=== PATIENT | female | born 1935 | race Caucasian/White ===

== ENCOUNTER 2016-09-25 15:13 | Inpatient (IN) | payer MEDICARE, OTHER ==
[~2016-09-25] VITALS: Ht 165.1 cm; Wt 53.6 kg
[~2016-09-25 15:13] MED LIST: ALBUTEROL0.09 MG/A2 INH; LANOXIN0.25 MG; LANOXIN0.25 MG PO; METOPROLOL25 MG PO; PRAD75 PO; PROPYLTHIOURACI50 MG PO; PROPYLTHIOURACIL; TESSALON PERLE200 MG PO; TRIAMTERENE; TRIAMTERENE/HCT1 CAP PO; ZANTAC 7575 MG; ZITHROMAX Z PA250 MG PO
[2016-09-25 15:18] VITALS: BP 89/60
[2016-09-25 15:48] LABS: BASO # 0.1 10*3/uL (0.0-0.1); BASO % 0.6 % (0.0-1.0); EOS # 0.2 10*3/uL (0.0-0.4); EOS % 1.5 % (1.0-4.0); HEMATOCRIT 42.9 % (37.0-47.0); HEMOGLOBIN 14.2 g/dl (12.0-16.0); LYMPH # 2.5 10*3/uL (1.3-4.4); LYMPH % 24.2 % (27.0-41.0); MEAN CELL VOLUME 95.1 fl (81.0-99.0); MEAN CORPUSCULAR HGB 31.5 pg (27.0-31.0); MEAN CORPUSCULAR HGB CONC 33.1 g/dl (33.0-37.0); MONO # 0.8 10*3/uL (0.1-1.0); NEUT # 6.8 10*3/uL (2.3-7.9); NEUT % 65.4 % (47.0-73.0); PLATELET COUNT AUTOMATED 191 10*3/uL (130-400); RED BLOOD COUNT 4.51 10*6/uL (4.10-5.10); RED CELL DISTRI WIDTH 12.1 % (0-14.5); WHITE BLOOD COUNT 10.3 10*3/uL (4.8-10.8)
[2016-09-25 15:57] LABS: INTERNATIONAL NORM RATIO 1.1 (2.0-3.5); PROTHROMBIN TIME 11.4 SECONDS (9.0-12.4)
[2016-09-25 15:58] VITALS: BP 94/55
[2016-09-25 16:05] VITALS: BP 110/67
[2016-09-25 16:05] LABS: ALBUMIN 3.7 gm/dl (3.1-4.5); ALKALINE PHOSPHATASE 107 U/L (45-117); BILIRUBIN, TOTAL 1.9 mg/dl (0.2-1.0); BUN 12 mg/dl (7-24); C-REACTIVE PROTEIN 0.54 MG/DL (0-0.3); CARBON DIOXIDE 35 mmol/L (21-32); CHLORIDE 99 mmol/L (98-107); CKMB 1.2 ng/ml (0.5-3.6); CPK 65 U/L (26-192); EST GLOM FILT AFRICAN AMERICAN > 60 ml/min; GLUCOSE 110 mg/dL (65-99); MAGNESIUM 2.3 mg/dL (1.5-2.1); POTASSIUM 3.5 mmol/L (3.5-5.1); SGOT/AST 17 IU/L (3-35); SGPT/ALT 16 U/L (12-78); SODIUM 137 mmol/L (136-145)
[2016-09-25 16:17] LABS: TROPONIN I < 0.015 ng/ml (<0.045)
[2016-09-25 18:18] VITALS: BP 110/67
[2016-09-25 18:41] LABS: CKMB 0.7 ng/ml (0.5-3.6); CPK 62 U/L (26-192)
[2016-09-25 18:46] LABS: TROPONIN I < 0.015 ng/ml (<0.045)
[2016-09-25 20:00] VITALS: BP 100/54
[2016-09-26 00:31] VITALS: BP 112/52
[2016-09-26 00:41] LABS: CKMB 0.8 ng/ml (0.5-3.6); CPK 55 U/L (26-192); TROPONIN I < 0.015 ng/ml (<0.045)
[2016-09-26 06:59] LABS: BASO % 0.5 % (0.0-1.0); EOS % 0.5 % (1.0-4.0); HEMATOCRIT 41.2 % (37.0-47.0); HEMOGLOBIN 13.8 g/dl (12.0-16.0); LYMPH # 1.5 10*3/uL (1.3-4.4); LYMPH % 18.8 % (27.0-41.0); MEAN CELL VOLUME 93.6 fl (81.0-99.0); MEAN CORPUSCULAR HGB 31.4 pg (27.0-31.0); MEAN CORPUSCULAR HGB CONC 33.5 g/dl (33.0-37.0); MEAN PLATELET VOLUME 9.9 fl (9.6-12.3); MONO # 0.6 10*3/uL (0.1-1.0); MONO % 7.6 % (3.0-9.0); NEUT # 5.9 10*3/uL (2.3-7.9); NEUT % 72.2 % (47.0-73.0); PLATELET COUNT AUTOMATED 154 10*3/uL (130-400); RED CELL DISTRI WIDTH 12.1 % (0-14.5); WHITE BLOOD COUNT 8.1 10*3/uL (4.8-10.8)
[2016-09-26 07:28] LABS: CKMB 1.1 ng/ml (0.5-3.6); CPK 50 U/L (26-192)
[2016-09-26 07:29] LABS: TROPONIN I < 0.015 ng/ml (<0.045)
[2016-09-26 07:31] LABS: INTERNATIONAL NORM RATIO 1.1 (2.0-3.5); PROTHROMBIN TIME 11.6 SECONDS (9.0-12.4)
[2016-09-26 07:34] LABS: CHLORIDE 98 mmol/L (98-107); POTASSIUM 3.1 mmol/L (3.5-5.1); SODIUM 139 mmol/L (136-145)
[2016-09-26 07:36] LABS: HEMOGLOBIN A1c 6.1 % (4.8-5.6)
[2016-09-26 07:57] LABS: ALBUMIN 3.7 gm/dl (3.1-4.5); ALKALINE PHOSPHATASE 97 U/L (45-117); BILIRUBIN, TOTAL 2.2 mg/dl (0.2-1.0); BUN 7 mg/dl (7-24); CARBON DIOXIDE 34 mmol/L (21-32); CHOLESTEROL 110 mg/dL (<200); EST GLOM FILT AFRICAN AMERICAN > 60 ml/min; FREE T4 0.84 ng/dl (0.76-1.46); GLUCOSE 115 mg/dL (65-99); HDL CHOLESTEROL 50 mg/dl (40-60); LDL CHOLESTEROL 38 mg/dL (9-159); MAGNESIUM 2.2 mg/dL (1.5-2.1); PHOSPHOROUS 3.1 mg/dL (2.5-4.9); SGOT/AST 15 IU/L (3-35); SGPT/ALT 14 U/L (12-78); TOTAL PROTEIN 7.8 gm/dL (6.4-8.2); TRIGLYCERIDES 111 mg/dl (<150); VLDL CHOLESTEROL 22 mg/dL (6-40)
[2016-09-26 08:00] VITALS: BP 110/48
[2016-09-26 08:06] LABS: VITAMIN D, 25-HYDROXY 17.3 ng/mL (30-100)
[2016-09-26 08:29] LABS: FOLIC ACID > 24.00 ng/mL (>5.38)
[2016-09-26 12:00] VITALS: BP 99/60
[2016-09-26 16:00] VITALS: BP 108/61
[2016-09-26 20:00] VITALS: BP 118/63
[2016-09-26 23:57] VITALS: BP 98/60
[2016-09-27 06:38] LABS: INTERNATIONAL NORM RATIO 1.1 (2.0-3.5); PROTHROMBIN TIME 11.6 SECONDS (9.0-12.4)
[2016-09-27 06:40] LABS: BUN 7 mg/dl (7-24); CARBON DIOXIDE 32 mmol/L (21-32); CHLORIDE 100 mmol/L (98-107); EST GLOM FILT AFRICAN AMERICAN > 60 ml/min; GLUCOSE 120 mg/dL (65-99); POTASSIUM 3.5 mmol/L (3.5-5.1); SODIUM 139 mmol/L (136-145)
[2016-09-27 08:00] VITALS: BP 118/63
[2016-09-27 12:00] VITALS: BP 102/64
[2016-09-27 16:00] VITALS: BP 110/72
[2016-09-27 20:01] VITALS: BP 102/63
[2016-09-28] VITALS: BP 110/82
[2016-09-28 06:24] LABS: INTERNATIONAL NORM RATIO 1.5 (2.0-3.5); PROTHROMBIN TIME 15.8 SECONDS (9.0-12.4)
[2016-09-28 08:00] VITALS: BP 115/43
[2016-09-28 12:00] VITALS: BP 107/68
[2016-09-28 16:00] VITALS: BP 116/73
[2016-09-28 20:00] VITALS: BP 107/63
[2016-09-29] VITALS: BP 134/78; BP 93/54
[2016-09-29 06:30] LABS: BASO # 0.1 10*3/uL (0.0-0.1); BASO % 0.8 % (0.0-1.0); EOS # 0.2 10*3/uL (0.0-0.4); EOS % 2.8 % (1.0-4.0); HEMATOCRIT 43.6 % (37.0-47.0); HEMOGLOBIN 14.7 g/dl (12.0-16.0); LYMPH # 1.8 10*3/uL (1.3-4.4); LYMPH % 28.1 % (27.0-41.0); MEAN CELL VOLUME 94.2 fl (81.0-99.0); MEAN CORPUSCULAR HGB 31.7 pg (27.0-31.0); MEAN CORPUSCULAR HGB CONC 33.7 g/dl (33.0-37.0); MEAN PLATELET VOLUME 10.3 fl (9.6-12.3); MONO # 0.5 10*3/uL (0.1-1.0); MONO % 7.5 % (3.0-9.0); NEUT % 60.3 % (47.0-73.0); PLATELET COUNT AUTOMATED 204 10*3/uL (130-400); RED BLOOD COUNT 4.63 10*6/uL (4.10-5.10); RED CELL DISTRI WIDTH 12.3 % (0-14.5); WHITE BLOOD COUNT 6.5 10*3/uL (4.8-10.8)
[2016-09-29 07:03] LABS: INTERNATIONAL NORM RATIO 2.2 (2.0-3.5); PROTHROMBIN TIME 24.8 SECONDS (9.0-12.4)
[2016-09-29 08:00] VITALS: BP 122/72
[2016-09-29] MEDS ORDERED: COUMADIN5 M2 PO (10:01)
[2016-09-29] MEDS ORDERED: LEVAQUIN750 M1 PO (10:03)
== END 2016-09-29 11:12 | disposition home or self-care (01) | DRG 178 ==
LOC: ED 15:13 → EDHOLD 16:56 → 4E 16:56
PROVIDERS: Emergency Medicine; Internal Medicine
DX: J15.6 Pneumonia due to other Gram-negative bacteria (principal); D68.69 Other thrombophilia; I48.2 Chronic atrial fibrillation; E83.41 Hypermagnesemia; J45.909 Unspecified asthma, uncomplicated; F17.200 Nicotine dependence, unspecified, uncomplicated; I10 Essential (primary) hypertension; E87.6 Hypokalemia; E55.9 Vitamin D deficiency, unspecified; Z79.01 Long term (current) use of anticoagulants; Z82.49 Family history of ischemic heart disease and other diseases of the circulatory system; Z71.6 Tobacco abuse counseling; Z80.9 Family history of malignant neoplasm, unspecified; Z79.51 Long term (current) use of inhaled steroids; Z79.899 Other long term (current) drug therapy

== ENCOUNTER → 2016-10-02 | Outpatient (CLI) | payer MEDICARE, OTHER ==
[~2016-10-02] MED LIST changes: +COUMADIN5 M2 PO; +LEVAQUIN750 M1 PO
[2016-10-02 15:00] LABS: INTERNATIONAL NORM RATIO 3.3 (2.0-3.5); PROTHROMBIN TIME 37.9 SECONDS (9.0-12.4)
== END | disposition home or self-care (01) ==
LOC: LAB 13:34
PROVIDERS: Internal Medicine
DX: I48.91 Unspecified atrial fibrillation (principal)

== ENCOUNTER → 2016-10-16 | Outpatient (CLI) | payer OTHER | END | disposition home or self-care (01) | LOC: MRI 10-12 11:00 | DX: M17.12 Unilateral primary osteoarthritis, left knee (principal); R22.42 Localized swelling, mass and lump, left lower limb; I83.93 Asymptomatic varicose veins of bilateral lower extremities ==

== ENCOUNTER → 2016-12-25 | Outpatient (CLI) | payer OTHER ==
[2016-12-25 09:37] LABS: EST GLOM FILT AFRICAN AMERICAN > 60 ml/min
== END | disposition home or self-care (01) ==
LOC: LAB 04:40 → CT 10:00 → LAB 10:00
DX: C49.22 Malignant neoplasm of connective and soft tissue of left lower limb, including hip (principal); J18.9 Pneumonia, unspecified organism; E04.1 Nontoxic single thyroid nodule

== ENCOUNTER 2017-05-11 13:55 | Inpatient (IN) | payer OTHER ==
[2017-05-11] VITALS (7 sets, daily range): BP systolic 92–117; BP diastolic 40–67
[~2017-05-11] VITALS: Ht 167.6 cm; Wt 48.3 kg
--- NOTE | ~2017-05-11 | CON ---
[place], [place] REPORT OF CONSULTATION NAME: CHAVEZ MARQUEZ I UNIT #: [id number] ROOM: 510 DOCTOR: ÁNGEL YOUSSEF MDDEEJAY BIRTHDATE: [birth year] DOS: 05/12/2017 PULMONARY CONSULTATION, EVALUATION AND MANAGEMENT REASON FOR CONSULTATION: Assess the patient for possibility of acute pneumonia and other abnormalities noted on the CT scan of the chest. HISTORY OF PRESENT ILLNESS: A 81-year-old white female patient who has been admitted to the hospital under the care of the hospitalist service on 05/11/2017. She has been brought to the hospital, as the patient was noted with syncopal episode at home. She did fell down from a seated position, but has not been noted any sustained injury to the head or other parts of the body or musculoskeletal symptoms. The syncopal episode has not recurred since hospitalization. The patient has been considered possibility of dehydration and has been given intravenous fluids. The patient is noted fully awake and alert at this time. She does report symptoms of some cough, which has been noted recently without any associated symptoms of wheezing or shortness of breath. The patient stated that she does have some pain, nonspecific, because of the cough, but does not have any ache or severe chest pain. Denies symptoms of hemoptysis. REVIEW OF SYSTEMS: CONSTITUTIONAL: Fatigue and tiredness reported for this patient just recently. There were no symptoms of fever or chills or any cold-like symptoms previously prior to the current hospitalization. EYES: Denies any burning, redness or tenderness. EARS, NOSE, THROAT: No sore throat was noted, otalgia, postnasal drainage, epistaxis, ear discharge or pain. CARDIOVASCULAR: The patient was noted syncope, etiology not clearly determined at this time. Denies any edema or pain of the lower extremities or palpitations. GASTROINTESTINAL: No dysphagia, nausea, vomiting, diarrhea, abdominal pain, hematemesis, melena, hematochezia or abnormal weight loss history. GENITOURINARY: Denies dysuria, suprapubic pain or hematuria. MUSCULOSKELETAL: No acute joint pain, redness or tenderness. SKIN: Denies any lesions or rashes. CENTRAL NERVOUS SYSTEM: No dizziness, headache, diplopia or tingling sensation of the extremities. Remaining systems were reviewed with the patient, they were noted all negative. PAST MEDICAL HISTORY: Reported as: 1. History of chronic atrial fibrillation. 2. Essential hypertension. 3. Vitamin D deficiency. PAST SURGICAL HISTORY: Reported as: 1. History of 3 sections. 2. Bilateral breast biopsies in the past. 3. History of cholecystectomy. [place], [place] REPORT OF CONSULTATION NAME: CHAVEZ MARQUEZ I UNIT #: [id number] ROOM: [facility] DOCTOR: DEEJAY PETERSON MD BIRTHDATE: [birth year] SOCIAL HISTORY: The patient is , lives at home. She does have 3 children. Noted nonsmoker lifetime. Denies history of alcohol use or any illicit drug use. Denies occupation related pulmonary exposure. FAMILY HISTORY: The patient's both parents and history was not known by the patient. MEDICATIONS: The medications for the patient, which were recorded at the time of admission in the medication reconciliation, were noted as use of digoxin, metoprolol tartrate, potassium chloride, propylthiouracil, Bactrim suspension twice a day, Dyazide, Coumadin 2.5 alternating with 5 mg every other day. DRUG ALLERGIES: REPORTED ALLERGY TO THE PENICILLINS. PHYSICAL EXAMINATION: GENERAL: A 81-year-old white female who has been currently noted to be awake and alert without any acute distress at this time. Comfortably resting, eager to be discharged home soon. VITAL SIGNS: The patient's height was recorded 5 feet 6 inches, weight of 106 pounds, BMI 17.7. The patient's temperature noted on 05/11/2017 was 100.1 degrees Fahrenheit, otherwise normal temperature since admission in the last 24 hours, respiratory rate ranging between 18-20, heart rate of 82-66, blood pressure 105/60 to 156. Pulse oxygen saturation on room air was 92% saturation to 94% saturation recorded. HEENT: Head was atraumatic. Eyes nonicterus. Neck was supple. Oral mucosa moist. CARDIOVASCULAR: S1, S2 audible. LUNGS: There were no wheezes or crackles heard. The lungs were noted clear to auscultation bilaterally. ABDOMEN: Noted flat, soft, nontender. Bowel sounds present. CENTRAL NERVOUS SYSTEM: The patient's cranial nerves were noted to be intact. No focal deficit. SKIN: Visible skin with no lesions or rashes. MUSCULOSKELETAL: Noted without any acute deformities. LABORATORY DATA: Lactic acid 1.8 noted yesterday on admission. PT/PTT yesterday on admission, INR of 1.8, PTT 32. CBC of the patient yesterday, WBC count 2.7, hemoglobin and hematocrit normal, platelet count 104,000. CMP of the patient on 05/11/2017, normal BUN and creatinine, sodium 128, chloride of 87, CO2 33, bilirubin 1.2. Troponin normal. CBC of the patient this morning, WBC count 2.3, hemoglobin and hematocrit normal, platelet count was 81,000, decreased from yesterday. BMP of the patient this morning noted as normal BUN and creatinine, sodium mildly decreased at 133 and potassium noted at 2.9. The TSH was noted 5.40. Culture of the sputum is pending. Gram stain of today cultured many white blood cells, moderate epithelial cells, moderate gram-positive bacilli, few gram-negative bacilli, few gram-positive cocci in pairs and chains and few budding yeast. Chest x-ray one-view, the patient does not show any acute abnormalities. CT of the chest that was done for the patient early this morning was reviewed. There was no evidence of pulmonary embolism. [place], [place] REPORT OF CONSULTATION NAME: CHAVEZ MARQUEZ I UNIT #: [id number] ROOM: [facility] DOCTOR: ÁNGEL YOUSSEF MD,[facility] BIRTHDATE: [birth year] Mild right hilar lymphadenopathy noted for this patient without any mediastinal lymphadenopathy with short dimension size for this patient of the lymph node noted at 13 mm. Short axis dimension of the patient noted 30 mm. A small patch of ground glass opacity was noted faintly visible in the right upper lung. Apical pleural thickening was noted as not an unusual finding. There were no pleural effusions. IMPRESSION: 1. The patient has been currently admitted to the hospital with syncopal episode, etiology unable to be determined at this time with some symptoms of cough and low-grade fever. Possibility of acute pneumonia involving the right upper lung, whether viral or bacterial, cannot be completely excluded. However, the etiology of the syncope could be considered with other etiologies such as intravascular volume depletion, cardiac dysrhythmia, cardiac in origin. However, seizure cannot be completely excluded as a cause of the syncopal episodes. She was still noted with electrolyte imbalance as well. 2. Evidence of leukopenia, which remains persistent as well as thrombocytopenia was noted from admission at this time, may be suggestive of either underlying bone marrow disorder or current viral infection resulting in current abnormalities as well. The CBC that was done for this patient in September 2016 was noted with normal WBC count at that time, on 09/25/2016, with WBC count recorded as 10.3. The platelet count was also noted normal at 191,000 with normal hemoglobin and hematocrit. PLAN OF MANAGEMENT: Empirical treatment for the acute pneumonia for the patient. Ordered viral panel for this patient with nasopharyngeal wash as well as follow the results of sputum culture. Current abnormality at this time would be monitored with followup CT scan in approximately a month or so to document the resolution of current abnormality. If it persisted, certain additional assessment might need to be done for the patient for the etiology of current ground glass opacity, possibility of slow growing malignant carcinoma in situ, adenocarcinoma in situ in the differential diagnosis. However, the localized area of interstitial involvement with noninfectious etiologies could be considered as well. The patient will be ordered for interstitial disease work panel as well. The respiratory viral panel was ordered as well. Continue adequate hydration and correction of the electrolytes of the patient as well. Supportive therapy, plan of management and other care. Usual treatment. Addition of treatment and changes are to be made for this patient based on the progression of the illness. [place], [place] REPORT OF CONSULTATION NAME: CHAVEZ MARQUEZ I UNIT #: [id number] ROOM: [facility] DOCTOR: DEEJAY PETERSON MD BIRTHDATE: [birth year] DEEJAY NEAL MD CM:CONSTR:REPORT OF CONSULTATION 1625 05/13/17 0227 interface
--- NOTE | ~2017-05-11 | PR ---
[place], [place] PROGRESS NOTE NAME: CHAVEZ MARQUEZ I UNIT #: [id number] ROOM: 510 DOCTOR: ÁNGEL YOUSSEF MD,DEEJAY BIRTHDATE: [birth year] DOS: 05/13/2017 SUBJECTIVE: She has been noted comfortable at this time, still noted with some cough, but there was no sputum expectoration. Denies chest pain. Eager to be discharged home. Denies symptoms of hemoptysis. OBJECTIVE: VITAL SIGNS: Blood pressure was recorded 110/73, respiratory rate 20, heart rate 78, temperature normal. Pulse oxygen saturation on room air 96% saturation recorded. HEENT: No acute change. NECK: Supple. CARDIOVASCULAR: S1, S2 is audible. LUNGS: The patient was noted without any wheezing or crackles. ABDOMEN: Soft, nontender. LABORATORY DATA: Culture of the sputum were noted, positive for beta hemolytic strep. The ESR was noted as 10. CBC this morning, WBC count 2.1, hemoglobin and hematocrit normal, platelet count still noted decreased at 85,000. BMP: Normal BUN and creatinine. Potassium still decreased at 2.9, sodium was also noted low at 135. IMPRESSION: 1. Right upper lung ground glass opacity was noted with right hilar lymphadenopathy, possibility of acute pneumonia localized infection has been considered. The other differential remains in progress. Workup in progress. 2. Persistent leukopenia as well as thrombocytopenia. The etiology remains unclear. PLAN OF TREATMENT: Continuation of the current therapy at this time as in progress. Other usual care, plan of therapy and care. Additional treatment changes to be made based on progression of the illness. DEEJAY NEAL MD CM:PNTRANS [id number] DEEJAY YOUSSEF MD 05/13/17 1534 interface
--- NOTE | ~2017-05-11 | PR ---
[place], [place] PROGRESS NOTE NAME: CHAVEZ MARQUEZ I UNIT #: [id number] ROOM: 510 DOCTOR: DEEJAY PETERSON MD BIRTHDATE: [birth year] DOS: 05/14/2017 SUBJECTIVE: She has been noted comfortable at this time without any discharge from the pulmonary standpoint. Minimal cough was reported with symptoms of chest pain or hemoptysis. Denies any abdominal pain. OBJECTIVE: VITAL SIGNS: For the patient which has been recorded this morning was noted with a normal temperature, respiratory rate 20, heart rate 73, and blood pressure of 99/43. The pulse oxygen saturation of the patient was noted as 93% saturation. HEENT: Examination shows no acute change. NECK: Supple. CARDIOVASCULAR: S1, S2 is audible. LUNGS: The patient was noted without any wheezing or crackles at the present time. ABDOMEN: Soft, nontender. LABORATORY DATA: CMP this morning was noted normal BUN and creatinine. Potassium still noted decreased at 3.0. However, the sodium was corrected. CBC of the patient was still noted WBC count 4.5, platelet count 86,000, hemoglobin 11%. Differential was noted with significant elevation, lymphocytes of 56%. The PT/INR were noted 2.2, which is therapeutic. Echocardiogram noted normal left ventricle ejection fraction. IMPRESSION: 1. The patient who has been currently noted with a small ground glass opacity right upper lung. 2. Mild right hilar lymphadenopathy, which was noted 3. Pancytopenia. 4. Leukocytosis, rule out bone marrow problems including possibility of myelodysplastic syndrome. 5. Leukemia . 6. Mild depression, other etiology be considered possibly viral in nature or any connective tissue disorder as well. PLAN OF MANAGEMENT: Monitor current workup, which was sent for assessment of ground glass opacity, empirical treatment for the pneumonia. Outpatient assessment, the patient repeat CT scan of the chest to document the evaluation of current problem. The patient was recommended about assessment by the Nephrology Services because of severe persistent hypokalemia and other electrolyte imbalance. [place], [place] PROGRESS NOTE NAME: CHAVEZ MARQUEZ I UNIT #: [id number] ROOM: 510 DOCTOR: DEEJAY PETERSON MD BIRTHDATE: [birth year] DEEJAY NEAL MD CM:PNTRANS [id number] DEEJAY YOUSSEF MD 05/14/17 1845 interface
--- NOTE | ~2017-05-11 | CON ---
[place], [place] REPORT OF CONSULTATION NAME: CHAVEZ MARQUEZ I UNIT #: [id number] ROOM: 510 DOCTOR: TAMAR MORENO MD BIRTHDATE: [birth year] DOS: 05/11/2017 REASON FOR CONSULTATION: Syncope, permanent atrial fibrillation. HISTORY OF PRESENT ILLNESS: The patient is a 81-year-old woman who presented to the hospital after a syncopal episode at home. The records indicate that she has a history of atrial fibrillation and she tells me that she has had atrial fibrillation for at least 10 years. She has never seen a web development instructor, but was managed by Dr. Hamida Manley who had her on anticoagulants as well as digoxin and metoprolol for rate control. She was on Pradaxa for a time, but was placed back on warfarin when Pradaxa became too expensive. She was also followed for hypertension and was managed with triamterene with hydrochlorothiazide. The patient states that she does not drink much water and does not eat as well as she should. She states that her blood pressure is almost always low. She claimed that because of the holidays, she was overworked and was very tired. Yesterday afternoon, she had gone to her kitchen to get a cup of tea. As she was walking across the kitchen, she began to feel lightheaded and saw bright lights in front of her eyes. She looked down and realized that she had spilled her tea and then fell to the floor. She hit her head on the floor, but woke immediately after that. She denied any focal weakness. She denied any diaphoresis, nausea or chest pain. She does not feel palpitations before during the event. Upon arrival, she was noted to be hypotensive with a blood pressure of 92/55 and then at 93/40. She was given 2 liters of IV fluid with improvement in her blood pressure. Initial laboratory studies did show sodium of 128. Subsequently, her potassium was low at 2.9. Her diuretics were stopped. She was bradycardic and so her metoprolol was also stopped. We were asked to assist in her care. PAST MEDICAL HISTORY: Includes 1. Permanent atrial fibrillation present at least 10 years. 2. Chronic anticoagulation with warfarin for stroke prophylaxis. 3. Essential hypertension managed with thiazide diuretics and beta blockers. 4. Rate control with metoprolol and digoxin. 5. 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 6. Hyperthyroidism, on suppressive therapy with propylthiouracil. MEDICATIONS: Prior to admission included digoxin 250 mcg daily, metoprolol 25 mg b.i.d., potassium 10 mEq daily, propylthiouracil 50 mg daily, sulfamethoxazole with trimethoprim 20 mL b.i.d. beginning 05/10/2017, triamterene with hydrochlorothiazide one tablet daily, warfarin 2.5 mg alternating with 5 mg, to maintain an INR between 2 and 3. ALLERGIES: The patient lists an allergy to PENICILLINS. FAMILY HISTORY: Negative for early coronary artery disease. Several family members have had atrial fibrillation; however, including her sister and possibly her mother. [place], [place] REPORT OF CONSULTATION NAME: CHAVEZ MARQUEZ I UNIT #: [id number] ROOM: [facility] DOCTOR: TAMAR MORENO MD BIRTHDATE: [birth year] REVIEW OF SYSTEMS: The patient denies diplopia or loss of vision. She denies focal weakness. She had the episode of syncope noted above. She denies nausea or vomiting. She denies fevers, chills or sweats. She has a poor appetite, but denies any recent major weight change. She does admit that she does not drink a lot of fluids. She denies nausea or vomiting. She denies hemoptysis or hematemesis. She denies any focal weakness. She denies palpitations or chest pain. She denies any change in bowel or bladder habits and denies blood in her stools or urine. She denies abdominal bloating or swelling. She denies any peripheral edema. She denies orthopnea or PND. She denies any skin rashes. The remainder of the review of systems is negative except as noted above. SOCIAL HISTORY: The patient is and lives with her . She does smoke. She does not consume alcohol. She does not drink much water, although she does drink tea daily. PHYSICAL EXAMINATION: GENERAL: The patient is a slender, elderly white female who is awake, alert and oriented. VITAL SIGNS: Pulse is 75 and irregularly irregular. Blood pressure is 97/58. Orthostatics have not yet been done. She is afebrile. She weighs 48.3 kg and has a body mass index of 17.2. HEENT: Normocephalic, atraumatic. Extraocular muscles are intact. Sclerae are clear. Pupils are equal, round and react to light. The oral mucosa is moist. Tongue is midline. NECK: Supple. She has no jugular distention. Carotids are full. I heard no bruits. She had no neck or supraclavicular masses, no thyromegaly. LUNGS: Respirations are unlabored. Her chest has decreased breath sounds at the bases. There are no wheezes or rales. She has no presacral edema or chest wall tenderness. CARDIOVASCULAR: Her heart has an irregularly irregular rhythm. There are no murmurs or gallops. The PMI is not displaced. There is no precordial heave, lift or thrill. ABDOMEN: Soft and normally active without masses, organomegaly or bruits. EXTREMITIES: Showed no edema. Peripheral pulses were palpable in the feet. LABORATORY DATA: I reviewed her electrocardiogram. It showed atrial fibrillation with a controlled ventricular response. She had nonspecific ST and T-wave changes which could be related to digoxin. She does have a left axis deviation with a left anterior fascicular block. Hemoglobin is 12.2 with hematocrit 36.4. There were 2300 white cells and 81,000 platelets. INR on admission was 1.8. Sodium on admission was 128 with a potassium 3.5, BUN 13, creatinine 0.95, chloride 87, bicarbonate 33. ProBNP is 2321. TSH is mildly elevated at 5.42. IMPRESSION: 1. Syncopal episode, likely due to hypotension and dehydration. 2. History of essential hypertension. 3. Hypotension with probable excessive diuresis. [place], [place] REPORT OF CONSULTATION NAME: CHAVEZ MARQUEZ I UNIT #: [id number] ROOM: 510 DOCTOR: TAMAR MORENO MD BIRTHDATE: [birth year] 4. Hypochloremic metabolic alkalosis, most likely due to diuretic therapy. 5. Hypokalemia, replaced. 6. Permanent atrial fibrillation with well controlled rate. The patient may actually be bradycardic. 7. Status post recent resection of a myxofibrosarcoma from her hip. 8. Abnormal chest x-ray indicating possible pneumonia. PLAN: I hardly agree with the thought that she should not be on diuretics. I told her that I did not think that she should be taking triamterene with hydrochlorothiazide any longer. The patient is angry that her metoprolol was stopped and says that she feels flutters in her chest since we have not been giving her metoprolol. Her monitor was discontinued and therefore I am not sure what her rates are. On exam, she is in atrial fibrillation and has been since admission. We will place her back on a monitor to see if she is having episodes of tachycardia. If her heart rate is well controlled at rest and with exertion, then I would not resume her metoprolol at this time. We will obtain an echocardiogram to assess left ventricular function and look for any evidence of valve problems. At this point; however, I believe that her syncope was caused by her permanent atrial fibrillation and dehydration exacerbated by her diuretic therapy. I thank the hospitalist physicians for asking our advice regarding the patient's care. TAMAR MORENO MD CM:CONSTR:REPORT OF CONSULTATION 1511 05/12/17 1702 interface
--- NOTE | ~2017-05-11 | PR ---
[place], [place] PROGRESS NOTE NAME: BRENNA MARQUEZ I UNIT #: [id number] ROOM: 510 DOCTOR: TAMAR MORENO MD BIRTHDATE: [birth year] DOS: 05/14/2017 Addendum to Cardiology progress note dictated earlier today by Dr. Raven Coughlin. Brenna Marquez was seen at her bedside today, 05/14/2017, with family medicine physician assistant, Dr. Raven Coughlin. The patient initially presented, May 11, with a syncopal episode at home that was probably related to dehydration and hypotension. She was found to have atrial fibrillation, which was a chronic finding. Her metoprolol was decreased and hydrochlorothiazide was stopped. I reviewed her echocardiogram today, which showed normal left ventricular size with mild concentric left ventricular hypertrophy, normal wall motion and normal systolic function. The left atrium was mildly dilated. There was no significant abnormality of valve function. The patient seemed to feel better with the change in her medications and it was felt that she could be discharged to home. I reviewed my findings and recommendations with the patient as well as with Dr. Coughlin and I agree with the documentation noted by Dr. Coughlin. I thank the hospitalist physicians for asking our advice regarding the patient's care. TAMAR MORENO MD CM:PNTRANS [id number] TAMAR MORENO MD 05/15/17 1644 interface
[2017-05-11] MEDS ORDERED: SULFATRIM 800-120 ML PO (14:31)
[2017-05-11 14:50] LABS: BASO % 0.7 % (0.0-1.0); HEMATOCRIT 41.8 % (37.0-47.0); HEMOGLOBIN 14.3 g/dl (12.0-16.0); LYMPH # 0.8 10*3/uL (1.3-4.4); LYMPH % 28.7 % (27.0-41.0); MEAN CELL VOLUME 89.1 fl (81.0-99.0); MEAN CORPUSCULAR HGB 30.5 pg (27.0-31.0); MEAN CORPUSCULAR HGB CONC 34.2 g/dl (33.0-37.0); MEAN PLATELET VOLUME 10.4 fl (9.6-12.3); MONO # 0.5 10*3/uL (0.1-1.0); MONO % 19.4 % (3.0-9.0); NEUT # 1.4 10*3/uL (2.3-7.9); NEUT % 51.2 % (47.0-73.0); PLATELET COUNT AUTOMATED 104 10*3/uL (130-400); RED BLOOD COUNT 4.69 10*6/uL (4.10-5.10); RED CELL DISTRI WIDTH 12.5 % (0-14.5); WHITE BLOOD COUNT 2.7 10*3/uL (4.8-10.8)
[2017-05-11 15:05] LABS: ACT PARTIAL THROMBO TIME 32.7 SECONDS (20.8-31.5); INTERNATIONAL NORM RATIO 1.8 (2.0-3.5)
[2017-05-11 15:11] LABS: ALBUMIN 3.5 gm/dl (3.1-4.5); ALKALINE PHOSPHATASE 75 U/L (45-117); BUN 13 mg/dl (7-24); CHLORIDE 87 mmol/L (98-107); CREATININE 0.95 mg/dL (0.55-1.02); LIPASE 411 U/L (73-393); POTASSIUM 3.5 mmol/L (3.5-5.1); SGOT/AST 31 IU/L (3-35); SGPT/ALT 18 U/L (12-78); SODIUM 128 mmol/L (136-145); TOTAL PROTEIN 8.4 gm/dL (6.4-8.2); TROPONIN I 0.031 ng/ml (<0.045)
[2017-05-11 15:22] LABS: DIGOXIN 1.69 ng/ml (0.8-2.0)
[2017-05-11 16:47] LABS: BILIRUBIN NEGATIVE (NEGATIVE); BLOOD TRACE-INTACT (NEGATIVE); CLARITY SL CLOUDY (CLEAR); COLOR YELLOW (YELLOW); GLUCOSE NEGATIVE (NEGATIVE); KETONE NEGATIVE (NEGATIVE); LEUKO ESTERASE NEGATIVE (NEGATIVE); NITRITE NEGATIVE (NEGATIVE); PH 7.5 (5.0-9.0); SPECIFIC GRAVITY 1.015 (1.005-1.030)
[2017-05-11 16:54] LABS: BACTERIA TRACE
[2017-05-11 16:55] LABS: RBC 16-20 rbc/hpf (0-2)
[2017-05-11] MEDS ORDERED: POTASSIUM CHLO10 MEQ PO (18:24)
[2017-05-11] MEDS ORDERED: WARFARIN SOD5 MG PO (19:07)
[2017-05-11] MEDS ORDERED: COUMADIN2.5 M1 PO (19:14)
[2017-05-12] VITALS: BP 91/43; BP 99/55
[2017-05-12 06:20] LABS: HEMATOCRIT 36.4 % (37.0-47.0); MEAN CELL VOLUME 90.5 fl (81.0-99.0); MEAN CORPUSCULAR HGB 30.3 pg (27.0-31.0); MEAN CORPUSCULAR HGB CONC 33.5 g/dl (33.0-37.0); MEAN PLATELET VOLUME 10.9 fl (9.6-12.3); PLATELET COUNT AUTOMATED 81 10*3/uL (130-400); RED BLOOD COUNT 4.02 10*6/uL (4.10-5.10); RED CELL DISTRI WIDTH 12.5 % (0-14.5); WHITE BLOOD COUNT 2.3 10*3/uL (4.8-10.8)
[2017-05-12 06:24] LABS: HEMOGLOBIN 12.2 g/dl (12.0-16.0)
[2017-05-12 06:40] LABS: BUN 10 mg/dl (7-24); CHLORIDE 95 mmol/L (98-107); POTASSIUM 2.9 mmol/L (3.5-5.1); SODIUM 133 mmol/L (136-145)
[2017-05-12 06:45] LABS: ATYPICAL LYMPHS 3 % (0-0); OVALOCYTES FEW; PLATELET SUFFICIENCY LOW (NORMAL); ROULEAUX SLIGHT; TOTAL CELLS COUNTED 100 #CELLS
[2017-05-12 06:52] LABS: CREATININE 0.74 mg/dL (0.55-1.02); FREE T4 1.04 ng/dl (0.76-1.46)
[2017-05-12 07:13] LABS: VITAMIN D, 25-HYDROXY 19.3 ng/mL (30-100)
[2017-05-12 08:00] VITALS: BP 96/50
[2017-05-12 12:00] VITALS: BP 97/58
[2017-05-12 16:00] VITALS: BP 105/56
[2017-05-12 20:00] VITALS: BP 100/50
[2017-05-13] VITALS: BP 99/55
[2017-05-13 06:51] LABS: HEMATOCRIT 35.6 % (37.0-47.0); HEMOGLOBIN 12.2 g/dl (12.0-16.0); MEAN CELL VOLUME 90.1 fl (81.0-99.0); MEAN CORPUSCULAR HGB 30.9 pg (27.0-31.0); MEAN CORPUSCULAR HGB CONC 34.3 g/dl (33.0-37.0); MEAN PLATELET VOLUME 10.7 fl (9.6-12.3); PLATELET COUNT AUTOMATED 85 10*3/uL (130-400); RED BLOOD COUNT 3.95 10*6/uL (4.10-5.10); RED CELL DISTRI WIDTH 12.4 % (0-14.5); WHITE BLOOD COUNT 2.1 10*3/uL (4.8-10.8)
[2017-05-13 06:54] LABS: INTERNATIONAL NORM RATIO 2.7 (2.0-3.5)
[2017-05-13 07:01] LABS: BUN 6 mg/dl (7-24); CHLORIDE 99 mmol/L (98-107); CREATININE 0.57 mg/dL (0.55-1.02); PHOSPHOROUS 2.1 mg/dL (2.5-4.9); POTASSIUM 2.9 mmol/L (3.5-5.1); SODIUM 135 mmol/L (136-145)
[2017-05-13 07:21] LABS: TOTAL CELLS COUNTED 50 #CELLS
[2017-05-13 07:23] LABS: PLATELET SUFFICIENCY LOW (NORMAL)
[2017-05-13 08:00] VITALS: BP 109/57
[2017-05-13 12:00] VITALS: BP 110/73
[2017-05-13 16:00] VITALS: BP 102/59
[2017-05-13 20:00] VITALS: BP 112/71
[2017-05-14] VITALS: BP 96/52
[2017-05-14 07:13] LABS: HEMATOCRIT 34.6 % (37.0-47.0); HEMOGLOBIN 11.7 g/dl (12.0-16.0); MEAN CELL VOLUME 90.6 fl (81.0-99.0); MEAN CORPUSCULAR HGB 30.6 pg (27.0-31.0); MEAN CORPUSCULAR HGB CONC 33.8 g/dl (33.0-37.0); MEAN PLATELET VOLUME 11.2 fl (9.6-12.3); PLATELET COUNT AUTOMATED 86 10*3/uL (130-400); RED BLOOD COUNT 3.82 10*6/uL (4.10-5.10); RED CELL DISTRI WIDTH 12.7 % (0-14.5); WHITE BLOOD COUNT 2.5 10*3/uL (4.8-10.8)
[2017-05-14 07:29] LABS: INTERNATIONAL NORM RATIO 2.2 (2.0-3.5)
[2017-05-14 07:45] LABS: BASOPHILS 2 % (0-1); OVALOCYTES FEW; PLATELET SUFFICIENCY LOW (NORMAL); TOTAL CELLS COUNTED 100 #CELLS
[2017-05-14 07:46] LABS: ALBUMIN 2.9 gm/dl (3.1-4.5); ALKALINE PHOSPHATASE 62 U/L (45-117); BUN 6 mg/dl (7-24); CHLORIDE 102 mmol/L (98-107); CREATININE 0.57 mg/dL (0.55-1.02); PHOSPHOROUS 3.1 mg/dL (2.5-4.9); SGOT/AST 26 IU/L (3-35); SGPT/ALT 18 U/L (12-78); SODIUM 138 mmol/L (136-145); TOTAL PROTEIN 6.4 gm/dL (6.4-8.2)
[2017-05-14 08:00] VITALS: BP 99/43
[2017-05-14 12:00] VITALS: BP 102/46
[2017-05-14] MEDS ORDERED: LEVAQUIN750 M1 PO (13:12)
[2017-05-14] MEDS ORDERED: LOPRESSOR25 MG PO (13:12)
[2017-05-14] MEDS ORDERED: COUMADIN1 M1 PO (13:12)
[2017-05-14] MEDS ORDERED: COUMADIN3 M1 PO (13:12)
[2017-05-15 06:10] LABS: IMMUNOGLOBULIN IgE 002170 40 IU/mL (0-100)
[2017-05-15 08:10] LABS: IMMUNOGLOBULIN M, QNT 52 mg/dL (26-217); RHEUMATOID ARTHRITIS FACTOR <10.0 IU/mL (0.0-13.9)
[2017-05-15 12:07] LABS: ALDOLASE 002030 3.1 U/L (3.3-10.3); ANGIOTENSIN-CONVERTING ENZYME 34 U/L (14-82)
[2017-05-15 16:08] LABS: ATYPICAL PANCA <1:20 titer (Neg:<1:20); CYTOPLASMIC (C-ANCA) 1:20 titer (Neg:<1:20); PERINUCLEAR (P-ANCA) <1:20 titer (Neg:<1:20)
[2017-05-16 02:08] LABS: IGG SUBCLASS 1 767 mg/dL (248-810); IGG SUBCLASS 2 462 mg/dL (130-555); IGG SUBCLASS 3 225 mg/dL (15-102); IGG SUBCLASS 4 41 mg/dL (2-96); IMMUNOGLOBULIN G, QNT 1464 mg/dL (700-1600)
[2017-05-17 00:04] LABS: ADENOVIRUS Negative (Negative); INFLUENZA A Positive (Negative); INFLUENZA B Negative (Negative); METAPNEUMOVIRUS Negative (Negative); PARAINFLUENZA 1 Negative (Negative); PARAINFLUENZA 2 Negative (Negative); PARAINFLUENZA 3 Negative (Negative); RHINOVIRUS Negative (Negative); RSV A Negative (Negative); RSV B Negative (Negative)
== END 2017-05-14 15:24 | disposition home or self-care (01) | DRG 193 ==
LOC: ED 13:55 → EDHOLD 17:12 → 5E 17:12
PROVIDERS: Emergency Medicine; Family Medicine; Internal Medicine; Internal Medicine Critical Care Medicine
DX: J18.9 Pneumonia, unspecified organism (principal); E43 Unspecified severe protein-calorie malnutrition; E87.3 Alkalosis; D61.818 Other pancytopenia; I95.9 Hypotension, unspecified; D68.59 Other primary thrombophilia; I48.2 Chronic atrial fibrillation; E87.1 Hypo-osmolality and hyponatremia; Z68.1 Body mass index [BMI] 19.9 or less, adult; F32.9 Major depressive disorder, single episode, unspecified; I35.8 Other nonrheumatic aortic valve disorders; R59.1 Generalized enlarged lymph nodes; F17.210 Nicotine dependence, cigarettes, uncomplicated; E86.0 Dehydration; E87.6 Hypokalemia; I10 Essential (primary) hypertension; Z88.0 Allergy status to penicillin; Z98.891 History of uterine scar from previous surgery; Z90.49 Acquired absence of other specified parts of digestive tract; Z90.710 Acquired absence of both cervix and uterus; Z82.49 Family history of ischemic heart disease and other diseases of the circulatory system; Z80.8 Family history of malignant neoplasm of other organs or systems

== ENCOUNTER 2018-06-13 11:04 | Emergency (ER) | payer OTHER, MEDICARE ==
[~2018-06-13] VITALS: Ht 165.1 cm; Wt 55.8 kg
[~2018-06-13 11:04] MED LIST changes: +COUMADIN1 M1 PO; +COUMADIN2.5 M1 PO; +COUMADIN3 M1 PO; +LOPRESSOR25 MG PO; +POTASSIUM CHLO10 MEQ PO; +SULFATRIM 800-120 ML PO; +WARFARIN SOD5 MG PO
[2018-06-13 11:31] LABS: BASO % 0.4 % (0.0-1.0); EOS # 0.2 10*3/uL (0.0-0.4); EOS % 3.5 % (1.0-4.0); HEMATOCRIT 29.1 % (37.0-47.0); HEMOGLOBIN 9.6 g/dl (12.0-16.0); LYMPH # 1.8 10*3/uL (1.3-4.4); LYMPH % 26.1 % (27.0-41.0); MEAN CORPUSCULAR HGB 31.7 pg (27.0-31.0); MEAN PLATELET VOLUME 9.8 fl (9.6-12.3); MONO # 0.6 10*3/uL (0.1-1.0); MONO % 8.7 % (3.0-9.0); NEUT # 4.2 10*3/uL (2.3-7.9); NEUT % 60.7 % (47.0-73.0); PLATELET COUNT AUTOMATED 181 10*3/uL (130-400); RED BLOOD COUNT 3.03 10*6/uL (4.10-5.10); RED CELL DISTRI WIDTH 13.1 % (0-14.5); WHITE BLOOD COUNT 6.9 10*3/uL (4.8-10.8)
[2018-06-13 11:52] LABS: ALBUMIN 3.2 gm/dl (3.1-4.5); ALKALINE PHOSPHATASE 82 U/L (45-117); BUN 9 mg/dl (7-24); CHLORIDE 99 mmol/L (98-107); CREATININE 0.73 mg/dL (0.55-1.02); POTASSIUM 3.6 mmol/L (3.5-5.1); SGOT/AST 31 IU/L (3-35); SGPT/ALT 27 U/L (12-78); SODIUM 139 mmol/L (136-145)
[2018-06-13 11:56] LABS: ACT PARTIAL THROMBO TIME 30.5 SECONDS (20.8-31.5); INTERNATIONAL NORM RATIO 1.2 (2.0-3.5)
[2018-06-13 12:58] VITALS: BP 91/58
== END 2018-06-13 13:03 | disposition home or self-care (01) ==
LOC: ED 11:04
PROVIDERS: Emergency Medicine
DX: L76.22 Postprocedural hemorrhage of skin and subcutaneous tissue following other procedure (principal); I48.2 Chronic atrial fibrillation; I10 Essential (primary) hypertension; E05.90 Thyrotoxicosis, unspecified without thyrotoxic crisis or storm; J45.909 Unspecified asthma, uncomplicated; F17.200 Nicotine dependence, unspecified, uncomplicated; Z79.01 Long term (current) use of anticoagulants; Z88.0 Allergy status to penicillin; Z79.2 Long term (current) use of antibiotics; Z79.899 Other long term (current) drug therapy; Z90.49 Acquired absence of other specified parts of digestive tract; Z90.710 Acquired absence of both cervix and uterus

== ENCOUNTER → 2019-03-03 | Day surgery (SDC) | payer OTHER ==
[2019-03-03 10:51] LABS: ACT PARTIAL THROMBO TIME 27.9 SECONDS (20.0-32.1)
== END | disposition home or self-care (01) ==
LOC: SDC 00:59
PROVIDERS: Surgery Plastic and Reconstructive Surgery
DX: C49.22 Malignant neoplasm of connective and soft tissue of left lower limb, including hip (principal); I48.91 Unspecified atrial fibrillation; E03.9 Hypothyroidism, unspecified; Z79.899 Other long term (current) drug therapy; Z88.0 Allergy status to penicillin

== ENCOUNTER → 2019-04-21 | Outpatient (CLI) | payer OTHER ==
[2019-04-21 12:31] LABS: BUN 11 mg/dl (7-24); CREATININE 0.93 mg/dL (0.55-1.02)
== END | disposition home or self-care (01) ==
LOC: LAB 11:39
PROVIDERS: Orthopaedic Surgery
DX: R19.09 Other intra-abdominal and pelvic swelling, mass and lump (principal)

== ENCOUNTER → 2019-04-22 | Outpatient (CLI) | payer OTHER | END | disposition home or self-care (01) | LOC: CT 01:06 | DX: K76.89 Other specified diseases of liver (principal); C49.22 Malignant neoplasm of connective and soft tissue of left lower limb, including hip; Z90.710 Acquired absence of both cervix and uterus ==

== ENCOUNTER → 2019-04-27 | Outpatient (CLI) | payer OTHER | END | disposition home or self-care (01) | LOC: MRI 01:33 | DX: C49.22 Malignant neoplasm of connective and soft tissue of left lower limb, including hip (principal); R19.09 Other intra-abdominal and pelvic swelling, mass and lump ==

== ENCOUNTER → 2021-02-20 | Outpatient (CLI) | payer OTHER | LOC: WOUNDCARE 13:54 | PROVIDERS: ATTEND Nurse Practitioner Primary Care | DX: L59.8 Other specified disorders of the skin and subcutaneous tissue related to radiation (principal); J43.9 Emphysema, unspecified; I48.91 Unspecified atrial fibrillation; E05.90 Thyrotoxicosis, unspecified without thyrotoxic crisis or storm; F17.210 Nicotine dependence, cigarettes, uncomplicated; Z98.890 Other specified postprocedural states; Z90.12 Acquired absence of left breast and nipple ==

== ENCOUNTER → 2021-10-13 | Outpatient (CLI) | payer OTHER, MEDICARE ==
[~2021-10-13] MED LIST changes: +Lopressor25 MG PO; +MUCINEX ER600 MG PO; +PAROXETINE HCL20 MG PO; +REMERON15 M2 PO; +TRIAMTERENE-HC1 EACH PO; +VITAMIN D350 MC2 PO; +WARFARIN SODIU2.5 MG PO; +ZITHROMAX TRI-500 M1 PO
== END | disposition home or self-care (01) ==
LOC: RAD 11:11
PROVIDERS: ATTEND Internal Medicine
DX: J98.11 Atelectasis (principal); J90 Pleural effusion, not elsewhere classified

== ENCOUNTER 2022-01-18 20:58 | Emergency (ER) | payer OTHER ==
[~2022-01-18] VITALS: Ht 167.6 cm; Wt 56.7 kg
[2022-01-18 21:02] VITALS: BP 122/67
[2022-01-18 21:33] LABS: BASO # 0.1 10*3/uL (0.0-0.1); BASO % 1.1 % (0.0-1.0); EOS # 0.2 10*3/uL (0.0-0.4); EOS % 3.6 % (1.0-4.0); HEMATOCRIT 43.6 % (37.0-47.0); LYMPH % 17.4 % (27.0-41.0); MEAN CELL VOLUME 104.8 fl (81.0-99.0); MEAN CORPUSCULAR HGB 33.7 pg (27.0-31.0); MEAN CORPUSCULAR HGB CONC 32.1 g/dl (33.0-37.0); MEAN PLATELET VOLUME 9.9 fl (9.6-12.3); MONO # 0.4 10*3/uL (0.1-1.0); MONO % 6.7 % (3.0-9.0); NEUT % 70.1 % (47.0-73.0); PLATELET COUNT AUTOMATED 164 10*3/uL (130-400); RED BLOOD COUNT 4.16 10*6/uL (4.10-5.10); RED CELL DISTRI WIDTH 17.5 % (0-14.5); WHITE BLOOD COUNT 5.6 10*3/uL (4.8-10.8)
[2022-01-18 21:49] LABS: CREATININE 1.15 mg/dL (0.55-1.02); POTASSIUM 3.9 mmol/L (3.5-5.1); TOTAL PROTEIN 8.7 gm/dL (6.4-8.2)
[2022-01-18 23:29] LABS: BILIRUBIN Negative (Negative); BLOOD Negative (Negative); CLARITY Cloudy (Clear); COLOR Yellow (Yellow); GLUCOSE Negative (Negative); KETONE Trace (Negative); LEUKO ESTERASE 1+ (Negative); NITRITE Negative (Negative); SPECIFIC GRAVITY 1.025 (1.001-1.030)
[2022-01-18 23:41] LABS: BACTERIA 2+; EPITHELIAL CELLS 21-30; WBC 21-30 wbc/hpf (0-5)
[2022-01-18] MEDS ORDERED: CIPRO500 MG PO (23:57)
== END 2022-01-19 00:06 | disposition home or self-care (01) ==
LOC: ED 20:58
PROVIDERS: Physician Assistant
DX: M54.2 Cervicalgia (principal); N39.0 Urinary tract infection, site not specified; D75.89 Other specified diseases of blood and blood-forming organs; N18.31 Chronic kidney disease, stage 3a; I48.91 Unspecified atrial fibrillation; F17.200 Nicotine dependence, unspecified, uncomplicated; Z88.0 Allergy status to penicillin; Z88.1 Allergy status to other antibiotic agents; Z79.899 Other long term (current) drug therapy; Z79.2 Long term (current) use of antibiotics; Z79.01 Long term (current) use of anticoagulants; Z98.890 Other specified postprocedural states; Z90.710 Acquired absence of both cervix and uterus; Z90.49 Acquired absence of other specified parts of digestive tract; W19.XXXA Unspecified fall, initial encounter; Y93.89 Activity, other specified; Y92.89 Other specified places as the place of occurrence of the external cause; Y99.8 Other external cause status